=== PATIENT | female | born 1985 | race Caucasian/White ===

== ENCOUNTER 2017-10-20 18:30 | Observation (INO) | payer MEDICAID ==
[~2017-10-20] VITALS: Ht 154.9 cm; Wt 65.9 kg
[~2017-10-20 18:30] MED LIST: NOCURR
[2017-10-20 21:45] VITALS: BP 116/71
[2017-10-21] MEDS ORDERED: PRENATAL VIT#96/FERROUS FUM/FA TABLET PO SCH (09:00)
== END 2017-10-20 20:10 | disposition home or self-care (01) ==
LOC: 4S 18:30
PROVIDERS: ADMIT Obstetrics & Gynecology; ATTEND Obstetrics & Gynecology
DX: O26.892 Other specified pregnancy related conditions, second trimester (principal); N89.8 Other specified noninflammatory disorders of vagina; O23.592 Infection of other part of genital tract in pregnancy, second trimester; B37.3 Candidiasis of vulva and vagina; Z3A.26 26 weeks gestation of pregnancy
CPT/HCPCS: 59025; G0378

== ENCOUNTER 2017-12-14 23:44 | Observation (INO) | payer MEDICAID ==
[~2017-12-14] VITALS: Ht 154.9 cm; Wt 68.5 kg
[2017-12-14 23:48] VITALS: BP 103/69
== END 2017-12-15 01:10 | disposition home or self-care (01) ==
LOC: 4S 23:44
PROVIDERS: ADMIT Obstetrics & Gynecology; ATTEND Obstetrics & Gynecology
DX: O36.8130 Decreased fetal movements, third trimester, not applicable or unspecified (principal); O26.893 Other specified pregnancy related conditions, third trimester; R10.9 Unspecified abdominal pain; Z3A.35 35 weeks gestation of pregnancy; W10.8XXA Fall (on) (from) other stairs and steps, initial encounter; Y93.89 Activity, other specified; Y92.098 Other place in other non-institutional residence as the place of occurrence of the external cause; Y99.8 Other external cause status
CPT/HCPCS: 59025; 80307 ×8; G0378 ×2

== ENCOUNTER 2017-12-29 03:20 | Inpatient (IN) | payer MEDICAID ==
[~2017-12-29] VITALS: Ht 154.9 cm; Wt 70.5 kg
[2018-01-11] MEDS ORDERED: RINGERS SOLUTION,LACTATED 1,000 ML IV SCH (06:36)
[2018-01-11] MEDS ORDERED: OXYTOCIN 30 UNITS/LACT RINGERS 500 ML IV ONE ×2 (06:36→07:33)
[2018-01-11] MEDS ORDERED: RINGERS SOLUTION,LACTATED 1,000 ML IV PRN (06:36)
[2018-01-11] MEDS ORDERED: FentaNYL CITRATE-PF 100 MCG/2 ML VIAL IVP PRN (06:45)
[2018-01-11] MEDS ORDERED: METOCLOPRAMIDE HCL 5 MG/ML 2 ML VIAL IVP PRN (06:45)
[2018-01-11] MEDS ORDERED: CITRIC ACID/SODIUM CITRATE 30 ML SOLUTION UDCUP PO PRN (06:45)
[2018-01-11 07:01] LABS: BASOPHILS % (AUTO) 0.5 % (0.0-2.0); EOSINOPHILS % (AUTO) 0.1 % (1.0-6.0); HEMATOCRIT 34.6 % (36-46); HEMOGLOBIN 11.4 g/dL (12.0-16.0); LYMPHOCYTES # (AUTO) 1.3 K/uL (1.0-4.8); LYMPHOCYTES % (AUTO) 13.1 % (22.0-44.0); MEAN CORPUSCULAR HEMOGLOBIN 25.6 pg (26.0-34.0); MEAN CORPUSCULAR HGB CONC 32.9 G/dL (31.0-37.0); MEAN CORPUSCULAR VOLUME 78 fL (80-100); MONOCYTES # (AUTO) 0.8 K/uL (0.1-1.0); MONOCYTES % (AUTO) 8.5 % (2.0-9.0); NEUTROPHILS # (AUTO) 7.7 K/uL (1.8-7.7); NEUTROPHILS % (AUTO) 77.8 % (40.0-70.0); PLATELET COUNT (AUTO)-OB 173 K/uL (150-450); RED BLOOD CELL COUNT(AUTO) 4.44 MIL/uL (4.00-5.20); RED CELL DISTRIBUTION WIDTH 15.2 % (11.5-14.5)
[2018-01-11] MEDS ORDERED: MISOPROSTOL 100 MCG TABLET ONE (07:24)
[2018-01-11] MEDS ORDERED: BENZOCAINE 20%/MENTHOL 56 GM SPRAY CANISTER TP PRN (07:45)
[2018-01-11] MEDS ORDERED: LANOLIN 7 GM OINTMENT TP PRN (07:45)
[2018-01-11] MEDS ORDERED: GLYCERIN/WITCH HAZEL LEAF 40 PADS JAR TP PRN (07:45)
[2018-01-11] MEDS ORDERED: LIDOCAINE/PF 1% 30 ML VIAL INJ PRN (07:45)
[2018-01-11] MEDS ORDERED: MISOPROSTOL 100 MCG TABLET PO ONE (07:45)
[2018-01-11] MEDS: IBUPROFEN 800 MG TABLET PO PRN ×2 (07:56→19:48)
[2018-01-11] MEDS: OxyCODONE HCL/ACETAMINOPHEN 5-325 MG TABLET PO PRN ×3 (07:57→23:27)
[2018-01-11] MEDS ORDERED: OXYGEN THERAPY IH SCH (08:00)
[2018-01-11] MEDS ORDERED: PREN1TAB80 PO (11:05)
[2018-01-12 06:47] LABS: BASOPHILS % (AUTO) 0.3 % (0.0-2.0); EOSINOPHILS % (AUTO) 0.8 % (1.0-6.0); HEMATOCRIT 28.2 % (36-46); HEMOGLOBIN 9.2 g/dL (12.0-16.0); LYMPHOCYTES # (AUTO) 1.6 K/uL (1.0-4.8); LYMPHOCYTES % (AUTO) 13.3 % (22.0-44.0); MEAN CORPUSCULAR HEMOGLOBIN 25.7 pg (26.0-34.0); MEAN CORPUSCULAR HGB CONC 32.8 G/dL (31.0-37.0); MEAN CORPUSCULAR VOLUME 78 fL (80-100); MONOCYTES # (AUTO) 0.9 K/uL (0.1-1.0); MONOCYTES % (AUTO) 7.8 % (2.0-9.0); NEUTROPHILS # (AUTO) 9.2 K/uL (1.8-7.7); NEUTROPHILS % (AUTO) 77.8 % (40.0-70.0); PLATELET COUNT (AUTO)-OB 137 K/uL (150-450)
[2018-01-12] MEDS: IBUPROFEN 800 MG TABLET PO PRN ×2 (08:14→18:04)
[2018-01-12] MEDS: MAGNESIUM HYDROXIDE SUSPENSION 30 ML UDCUP PO PRN ×2 (08:15→20:01)
[2018-01-12] MEDS: OxyCODONE HCL/ACETAMINOPHEN 5-325 MG TABLET PO PRN ×2 (11:50→20:01)
[2018-01-13] MEDS: IBUPROFEN 800 MG TABLET PO PRN ×2 (01:35→09:12)
[2018-01-13] MEDS: MAGNESIUM HYDROXIDE SUSPENSION 30 ML UDCUP PO PRN (09:12)
[2018-01-13] MEDS ORDERED: IBUP-2071 PO (11:11)
[2018-01-13] MEDS ORDERED: DSS100 PO (11:11)
[2018-01-13] MEDS ORDERED: FERR-89 PO (11:12)
[2018-01-13] MEDS: OxyCODONE HCL/ACETAMINOPHEN 5-325 MG TABLET PO PRN (13:09)
== END 2018-01-13 13:30 | disposition home or self-care (01) | DRG 560 ==
LOC: 4S 01-11 05:48 → OBSVTOIN 01-11 05:48
PROVIDERS: ADMIT Obstetrics & Gynecology; ATTEND Obstetrics & Gynecology
PROC: 10E0XZZ Delivery of Products of Conception, External Approach (ICD-10-PCS; principal; 2018-01-11)
PROC: 10907ZC Drainage of Amniotic Fluid, Therapeutic from Products of Conception, Via Natural or Artificial Opening (ICD-10-PCS; 2018-01-11)
DX: O77.0 Labor and delivery complicated by meconium in amniotic fluid (principal); Z37.0 Single live birth; Z3A.38 38 weeks gestation of pregnancy
CPT/HCPCS: 80307; 86850; 86900; 86901; J2590

== ENCOUNTER 2021-03-06 09:18 | Emergency (ER) | payer MEDICAID ==
[~2021-03-06] VITALS: Ht 154.9 cm; Wt 50.0 kg
[~2021-03-06 09:18] MED LIST changes: +DSS100 PO; +FERR-89 PO; +IBUP-2071 PO; -NOCURR; +PREN1TAB80 PO
[2021-03-06 09:31] VITALS: BP 118/87
== END 2021-03-06 14:27 | disposition left against medical advice (07) ==
LOC: EMS 09:20
DX: T16.1XXA Foreign body in right ear, initial encounter (principal); X58.XXXA Exposure to other specified factors, initial encounter; Y93.89 Activity, other specified; Y92.89 Other specified places as the place of occurrence of the external cause; Y99.8 Other external cause status
CPT/HCPCS: 99282; Z7502

== ENCOUNTER 2021-04-14 17:07 | Emergency (ER) | payer MEDICAID ==
[~2021-04-14] VITALS: Ht 154.9 cm; Wt 52.3 kg
[2021-04-14 18:57] LABS: COVID AG,FIA SOURCE NASAL SWAB
[2021-04-14 20:28] VITALS: BP 133/82
== END 2021-04-14 21:02 | disposition home or self-care (01) ==
LOC: EMS 17:14
DX: U07.1 COVID-19 (principal); F17.210 Nicotine dependence, cigarettes, uncomplicated; Z79.899 Other long term (current) drug therapy
CPT/HCPCS: 99283

== ENCOUNTER 2021-08-14 09:28 | Emergency (ER) | payer MEDICAID ==
[~2021-08-14] VITALS: Ht 165.1 cm; Wt 59.1 kg
[~2021-08-14 09:28] MED LIST changes: -FERR-89 PO; +FERR325T27 PO
[2021-08-14 09:37] VITALS: BP 156/83
== END 2021-08-14 13:19 | disposition home or self-care (01) ==
LOC: EMS 09:28
DX: R26.81 Unsteadiness on feet (principal); F17.210 Nicotine dependence, cigarettes, uncomplicated; Z87.2 Personal history of diseases of the skin and subcutaneous tissue
CPT/HCPCS: 99281; Z7502

== ENCOUNTER 2023-09-09 16:49 | Emergency (ER) | payer MEDICAID, OTHER ==
[~2023-09-09] VITALS: Ht 157.5 cm; Wt 56.8 kg
[2023-09-09 16:56] VITALS: TEMP 98
[2023-09-09] MEDS: LIDOCAINE 1% 10 ML VIAL ID ONE (17:49)
[2023-09-09] MEDS: PERTUSS(ACELL),DIPH,TET/PF 0.5 ML SYRINGE [ADULT] IM. ONE (17:50)
[2023-09-09] MEDS ORDERED: CEPH-558 PO (18:24)
[2023-09-09] MEDS: CEPHALEXIN MONOHYDRATE 500 MG CAPSULE PO ONE (18:46)
[2023-09-09 18:52] VITALS: BP 131/68; PULSE 85; RESP 18
== END 2023-09-09 18:53 | disposition home or self-care (01) ==
LOC: EMS 16:49
DX: S61.211A Laceration without foreign body of left index finger without damage to nail, initial encounter (principal); F17.210 Nicotine dependence, cigarettes, uncomplicated; W26.0XXA Contact with knife, initial encounter; Y93.G3 Activity, cooking and baking; Y92.89 Other specified places as the place of occurrence of the external cause; Y99.8 Other external cause status
CPT/HCPCS: 99283; 90715; 90471; J3490

== ENCOUNTER 2024-02-09 18:56 | Inpatient (IN) | payer MEDICAID, OTHER ==
[~2024-02-09] VITALS: Ht 162.6 cm; Wt 54.9 kg
[~2024-02-09 18:56] MED LIST changes: +CEPH-558 PO; -DSS100 PO; -FERR325T27 PO; -IBUP-2071 PO; -PREN1TAB80 PO
[2024-02-09 19:44] VITALS: O2SAT 98
[2024-02-09 21:16] LABS: BASOPHILS % (AUTO) 0.5 % (0.0-2.0); EOSINOPHILS % (AUTO) 0.8 % (1.0-6.0); HEMATOCRIT 41.8 % (36-46); HEMOGLOBIN 13.9 g/dL (12.0-16.0); LYMPHOCYTES # (AUTO) 1.5 K/uL (1.0-4.8); LYMPHOCYTES % (AUTO) 13.9 % (22.0-44.0); MEAN CORPUSCULAR HEMOGLOBIN 29.1 pg (26.0-34.0); MEAN CORPUSCULAR HGB CONC 33.3 G/dL (31.0-37.0); MEAN CORPUSCULAR VOLUME 88 fL (80-100); MONOCYTES # (AUTO) 0.8 K/uL (0.1-1.0); MONOCYTES % (AUTO) 6.9 % (2.0-9.0); NEUTROPHILS # (AUTO) 8.6 K/uL (1.8-7.7); NEUTROPHILS % (AUTO) 77.9 % (40.0-70.0); PLATELET COUNT (AUTO) 292 K/uL (150-450); RED BLOOD CELL COUNT(AUTO) 4.78 MIL/uL (4.00-5.20); RED CELL DISTRIBUTION WIDTH 14.1 % (11.5-14.5)
[2024-02-09 21:29] LABS: ANION GAP 7 mmol/L (8-16); CALCIUM, TOTAL 9.6 mg/dL (8.8-10.5); CARBON DIOXIDE 30 mmol/L (22-29); CHLORIDE 102 mmol/L (98-107); CREATININE 0.86 mg/dL (0.60-1.30); GLOMERULAR FILTR. RATE CALC > 60 mL/min (>60); GLUCOSE,RANDOM 117 mg/dL (70-110); POTASSIUM 3.6 mmol/L (3.5-5.1); SODIUM SERUM 139 mmol/L (136-145); UREA NITROGEN, BLOOD 8 mg/dL (7-18)
[2024-02-09 21:30] LABS: PH,URINE DRUG SCREEN 6.5 (5.0-8.0)
[2024-02-09 21:40] LABS: ALCOHOL, BLOOD (SERUM) < 3 mg/dL (0-10)
[2024-02-09 21:44] LABS: ALCOHOL, URINE DRUG SCREEN NEGATIVE (NEGATIVE); AMPHET/METH SCREEN,URINE NEGATIVE (NEGATIVE); BARBITURATE SCREEN, URINE NEGATIVE (NEGATIVE); BENZODIAZEPINES SCREEN,URINE NEGATIVE (NEGATIVE); CANNABINOID SCREEN,URINE NEGATIVE (NEGATIVE); COCAINE SCREEN,URINE NEGATIVE (NEGATIVE); METHADONE SCREEN, URINE NEGATIVE (NEGATIVE); OPIATE SCREEN,URINE NEGATIVE (NEGATIVE); PHENCYCLIDINE SCREEN,URINE NEGATIVE (NEGATIVE)
[2024-02-09 21:47] LABS: COVID AG,FIA SOURCE NASAL SWAB
[2024-02-09 22:06] LABS: SARS-COV2 (COVID) ANTIGEN,FIA Negative (Negative)
[2024-02-09] MEDS: DiphenhydrAMINE HCL 25 MG CAPSULE PO ONE (22:56)
[2024-02-09] MEDS: ACETAMINOPHEN 500 MG TABLET PO ONE (22:57)
[2024-02-09] MEDS: HALOPERIDOL 5 MG TABLET PO ONE (22:57)
[2024-02-09] MEDS: GuaiFENesin/D-METHORPHAN [SUGAR-FREE] 200-20MG/10 ML SYRUP UDCUP PO ONE (22:57)
[2024-02-09] MEDS: LORazepam 2 MG TABLET PO ONE (22:57)
[2024-02-09] MEDS ORDERED: LORazepam 2 MG TABLET PO PRN (23:15)
[2024-02-09] MEDS ORDERED: HALOPERIDOL 5 MG TABLET PO PRN (23:15)
[2024-02-09] MEDS ORDERED: ZOLPIDEM TARTRATE 10 MG TABLET PO PRN (23:15)
[2024-02-09 23:29] LABS: APPEARANCE,URINE HAZY (CLEAR); BILIRUBIN,URINE NEGATIVE (NEGATIVE); COLOR,URINE COLORLESS (YELLOW); GLUCOSE, URINE (UA) NEGATIVE (NEGATIVE); KETONES,URINE NEGATIVE (NEGATIVE); LEUKOCYTE ESTERASE ,URINE LARGE (NEGATIVE); NITRATE,URINE POSITIVE (NEGATIVE); OCCULT BLOOD,URINE NEGATIVE (NEGATIVE); PH,URINE 6.5 (5.0-8.0); PROTEIN,URINE NEGATIVE (NEGATIVE); SPECIFIC GRAVITIY, URINE 1.004 (1.003-1.030); UROBILINOGEN,URINE <=1.0 mg/dL (<=1.0)
[2024-02-10 00:20] LABS: BACTERIA,URINE Many /HPF (None Seen); RBC,URINE 0-2 /HPF (0-2); SQUAMOUS EPITHELIAL CELL,UR Few /LPF (None Seen)
[2024-02-10] MEDS: CEPHALEXIN MONOHYDRATE 500 MG CAPSULE PO ONE ×2 (00:45→08:39)
[2024-02-10 08:05] VITALS: BP 107/70; PULSE 79; RESP 16; TEMP 97; O2SAT 97
[2024-02-10 09:02] LABS: HEMOGLOBIN A1C 5.3 % (3.8-5.6)
[2024-02-10 09:18] LABS: CHOL/HDL RATIO 2.3 (3.9-5.7); THYROID STIMULATING HORMONE 2.84 uIU/mL (0.36-3.74)
[2024-02-10] MEDS ORDERED: ACETAMINOPHEN 325 MG TABLET PO PRN (10:00)
[2024-02-10] MEDS ORDERED: HydrOXYzine PAMOATE 50 MG CAPSULE PO PRN (10:00)
[2024-02-10] MEDS ORDERED: MAG HYDROX/ALUMINUM HYD/SIMETH ES 30 ML SUSPENSION UDCUP PO PRN (10:00)
[2024-02-10] MEDS ORDERED: MAGNESIUM HYDROXIDE SUSPENSION 30 ML UDCUP PO PRN (10:00)
[2024-02-10] MEDS ORDERED: PROMETHAZINE HCL 25 MG TABLET PO PRN (10:00)
[2024-02-10] MEDS ORDERED: GuaiFENesin/D-METHORPHAN [SUGAR-FREE] 200-20MG/10 ML SYRUP UDCUP PO PRN (10:00)
[2024-02-10] MEDS ORDERED: LOPERAMIDE HCL 2 MG CAPSULE PO PRN (10:00)
[2024-02-10] MEDS ORDERED: TUBERCULIN, PURIFIED PROTEIN DERIVATIVE 5 TU/0.1 ML SYRINGE ID ONE (10:00)
[2024-02-10] MEDS: THIAMINE 100 MG TABLET PO SCH (16:37)
[2024-02-10 20:06] VITALS: BP 105/67; PULSE 97; RESP 17; TEMP 97.4; O2SAT 96
[2024-02-10] MEDS: OLANZapine 5 MG RAPDIS TABLET PO SCH (20:12)
[2024-02-10] MEDS: DIVALPROEX SODIUM 500 MG ER TABLET PO SCH (20:14)
[2024-02-10] MEDS: MELATONIN 5 MG TABLET PO SCH (20:14)
[2024-02-11 08:22] LABS: HEMOGLOBIN A1C 5.4 % (3.8-5.6)
[2024-02-11 08:23] VITALS: RESP 16
[2024-02-11] MEDS: FOLIC ACID 1 MG TABLET PO SCH (08:27)
[2024-02-11] MEDS: MULTIVITAMINS WITH MINERALS, THERAPEUTIC TABLET PO SCH (08:27)
[2024-02-11] MEDS: CIPROFLOXACIN HCL 500 MG TABLET PO SCH (08:27)
[2024-02-11] MEDS: NALTREXONE HCL 50 MG TABLET PO SCH (08:27)
[2024-02-11 08:43] LABS: CHOL/HDL RATIO 2.3 (3.9-5.7); FREE T4 (FREE THYROXINE) 1.16 ng/dL (0.76-1.46); THYROID STIMULATING HORMONE 1.69 uIU/mL (0.36-3.74)
[2024-02-11] MEDS: OLANZapine 10 MG RAPDIS TABLET PO SCH (20:06)
[2024-02-11 20:26] VITALS: BP 104/64; PULSE 86; RESP 18; TEMP 97; O2SAT 96
[2024-02-11] MEDS ORDERED: MELA5TAB40 PO (20:43)
[2024-02-11] MEDS ORDERED: NALT50TA33 PO (20:43)
[2024-02-11] MEDS ORDERED: DIVA-153 PO (20:43)
[2024-02-11] MEDS ORDERED: OLAN10TA26 PO (20:43)
[2024-02-12 08:02] VITALS: BP 118/74; PULSE 79; RESP 16; TEMP 97.6; O2SAT 98
[2024-02-12] MEDS ORDERED: CIPR500T10 PO (10:00)
== END 2024-02-12 17:23 | disposition home or self-care (01) | DRG 750 ==
LOC: EMS 18:56 → B3A 02-10 00:02
PROVIDERS: ADMIT Psychiatry & Neurology Psychiatry; ATTEND Psychiatry & Neurology Psychiatry
PROC: GZHZZZZ Group Psychotherapy (ICD-10-PCS; principal; 2024-02-10)
PROC: GZ51ZZZ Individual Psychotherapy, Behavioral (ICD-10-PCS; 2024-02-10)
DX: F20.9 Schizophrenia, unspecified (principal); G93.41 Metabolic encephalopathy; D64.9 Anemia, unspecified; Z20.822 Contact with and (suspected) exposure to COVID-19; J06.9 Acute upper respiratory infection, unspecified; F17.200 Nicotine dependence, unspecified, uncomplicated; N39.0 Urinary tract infection, site not specified; J44.9 Chronic obstructive pulmonary disease, unspecified; Z55.9 Problems related to education and literacy, unspecified; Z59.9 Problem related to housing and economic circumstances, unspecified; Z65.3 Problems related to other legal circumstances; Z63.9 Problem related to primary support group, unspecified
CPT/HCPCS: 80048; 80061; 80164; 80307; 81001; 83036; 84439; 84443; 84703; 85025; 86592; 87077; 87086; 87186; 99285; G0480